=== PATIENT | male | born 1990 | race Caucasian/White ===

== ENCOUNTER → 2019-07-15 | Outpatient (CLI) | payer BC ==
--- NOTE | 2019-07-15 20:33 | CONS ---
CONSULTATION REASON FOR CONSULTATION: Sleep apnea. 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 Going back and forth, the patient has become very tired and fatigued and he is very concerned that he may fall asleep while driving. He is averaging around 6 hours of sleep. He goes to bed somewhere between 10 and 11:30 p.m. and he wakes up at 4 a.m. in the morning. He has to be on the road around 4:30. On weekends he sleeps between 10 p.m. and 7 a.m. Even sleeping longer, he feels drowsy and sleepy and naps are not getting him the refreshment that he is expecting. As such, he is considering obstructive sleep apnea, especially since he has been told that he snores. No witnessed apneas. His current Rarden score is 17. No sleep paralysis. No hallucinations. No cataplexy. No head trauma. No history of substance abuse. No history of anxiety or depression. Somnolence and sleepiness is not seasonal in nature. PAST MEDICAL HISTORY: Negative. SURGICAL HISTORY: Left ankle surgery. DRUG ALLERGIES: NOT KNOWN. MEDICATIONS: None. SOCIAL HISTORY: The patient is a nonsmoker. No history of alcoholism. No history of IV drugs. FAMILY HISTORY: Negative for sleep apnea. REVIEW OF SYSTEMS: Fourteen-point review of systems was done. Positive findings were all mentioned above in the history of present illness. He is gaining weight. He has gained around 13 pounds over the past one year. He prefers to sleep on his side. He wakes up probably once in the middle of the night. No sleep paralysis. No hallucinations. No cataplexy. No anxiety. No depression. No sleepwalking or sleeptalking. No grinding of the teeth. No palpitations. No heartburn, chest pain or shortness of breath overnight. PHYSICAL EXAMINATION: VITAL SIGNS: BP is 142/77, pulse 80, respirations 16, temperature 98.1, saturation 95% on room air. Rarden score 17. BMI is 39. Neck size is 16-1/4 inches. GENERAL APPEARANCE: Calm, comfortable. HEAD: Atraumatic, normocephalic. NECK: Supple. No JVD. No goiter or neck masses. Mallampati class IV. LUNGS: Clear to auscultation. HEART: Heart sounds are regular rate and rhythm. Normal S1, S2. No S3, S4. No murmurs. ABDOMEN: Soft, nontender. No organomegaly. EXTREMITIES: No edema. No cyanosis or clubbing. NEUROLOGIC: Alert and oriented x3. No focal neurological deficits. PSYCHIATRIC: The patient has no anxiety or depression. SKIN: Negative for any wounds or ulceration. IMPRESSION: 1. Hypersomnia; Rarden score of 17; high likelihood for obstructive sleep apnea. In addition, the patient has an insufficient sleep syndrome that may need to be treated. 2. Obesity with body mass index of 39. 3. Loud snoring. PLAN: 1. Extend sleep hours to an average of 7 hours at least per night. The patient needs to go to bed earlier, preferably around 9:30 p.m. 2. Implement good sleep hygiene measures. 3. Weight loss. 4. Screening polysomnogram to rule out the possibility of obstructive sleep apnea and treat accordingly. Meanwhile, driving precautions were given and the patient was asked not to drive, especially when feeling drowsy or sleepy. MMODL / IJN: [id number] /
== END | disposition home or self-care (01) ==
LOC: SLEEP 14:48
PROVIDERS: ATTEND Internal Medicine Critical Care Medicine
DX: G47.33 Obstructive sleep apnea (adult) (pediatric) (principal); E66.9 Obesity, unspecified; Z68.39 Body mass index [BMI] 39.0-39.9, adult; R53.83 Other fatigue
CPT/HCPCS: 99211